=== PATIENT | male | born 1985 | race Caucasian/White ===

== ENCOUNTER 2020-10-05 17:56 | Emergency (ER) | payer OTHER ==
[~2020-10-05] VITALS: Ht 175.3 cm; Wt 77.1 kg
[2020-10-05] MEDS ORDERED: VITAMIN C60 MG PO (18:11)
[2020-10-05] MEDS ORDERED: NORCO 5-325 TA1 EAC2 PO (19:13)
[2020-10-05] MEDS ORDERED: KEFLEX500 M1 PO (19:13)
[2020-10-05 19:24] VITALS: BP 128/70
== END 2020-10-05 19:24 | disposition home or self-care (01) ==
LOC: M.ERS 17:56
DX: S61.412A Laceration without foreign body of left hand, initial encounter (principal); Z79.899 Other long term (current) drug therapy; W29.8XXA Contact with other powered hand tools and household machinery, initial encounter; Y93.89 Activity, other specified; Y92.89 Other specified places as the place of occurrence of the external cause; Y99.8 Other external cause status

== ENCOUNTER 2020-10-16 13:25 | Emergency (ER) | payer OTHER ==
[~2020-10-16] VITALS: Ht 175.3 cm; Wt 77.1 kg
[~2020-10-16 13:25] MED LIST: KEFLEX500 M1 PO; NORCO 5-325 TA1 EAC2 PO; VITAMIN C60 MG PO
[2020-10-16 13:50] VITALS: BP 121/76
== END 2020-10-16 14:03 | disposition home or self-care (01) ==
LOC: M.ERS 13:25
DX: S61.412D Laceration without foreign body of left hand, subsequent encounter (principal); Z79.899 Other long term (current) drug therapy; X58.XXXD Exposure to other specified factors, subsequent encounter